=== PATIENT | male | born 1980 | race African-American/Black ===

== ENCOUNTER 2021-07-22 07:26 | Outpatient (REF) | payer OTHER, SELFPAY ==
--- NOTE | ~2021-07-22 | XR_ITS ---
EXAMINATION: XR KNEE STANDING VIEW, BILATERAL XR KNEE, LEFT CLINICAL INFORMATION: Left knee pain. COMPARISON: None TECHNIQUE: Single standing view both knees with 2 additional views left knee. FINDINGS: No bone, joint or soft tissue abnormality is seen. XR/XR knee LT 2V IMPRESSION: Negative knee radiographs.
--- NOTE | ~2021-07-22 | XR_ITS ---
EXAMINATION: XR KNEE STANDING VIEW, BILATERAL XR KNEE, LEFT CLINICAL INFORMATION: Left knee pain. COMPARISON: None TECHNIQUE: Single standing view both knees with 2 additional views left knee. FINDINGS: No bone, joint or soft tissue abnormality is seen. XR/XR knee standing BI IMPRESSION: Negative knee radiographs.
== END 2021-07-22 07:27 | disposition home or self-care (01) ==
LOC: HO.HOSX 07:26
PROVIDERS: Visit Provider Physician Assistant
DX: M76.32 Iliotibial band syndrome, left leg (principal); M25.561 Pain in right knee; M25.562 Pain in left knee
CPT/HCPCS: 73560; 73565

== ENCOUNTER 2021-10-06 15:05 | Outpatient (REF) | payer OTHER, SELFPAY | END 2021-10-06 15:06 | disposition home or self-care (01) | LOC: HO.LAB 15:05 | PROVIDERS: Visit Provider Internal Medicine | DX: Z13.89 Encounter for screening for other disorder (principal) ==

== ENCOUNTER 2023-04-04 15:58 | Emergency (ER) | payer OTHER, SELFPAY ==
--- NOTE | ~2023-04-04 | CT_ITS ---
EXAMINATION: CT HEAD WITHOUT CONTRAST CLINICAL INFORMATION: Headache and hypertension. COMPARISON: None available. TECHNIQUE: Contiguous axial imaging was performed from the skull base to vertex without intravenous administration of contrast. This CT examination was performed using dose optimization techniques as appropriate, variously including the following: *Automated exposure control *Adjustment of mA and/or kV according to patient size (this includes techniques or standardized protocols for targeted exams where dose is matched to indication/reason for exam; i.e. extremities or head) *Use of iterative reconstruction technique DLP: 788 mGy-cm FINDINGS: There is no evidence of acute intracranial hemorrhage or territorial infarction. No mass effect or midline shift is seen. Morales to white matter differentiation is well preserved. No extra-axial fluid collections are identified. No hydrocephalus. The osseous structures and soft tissues are unremarkable. The mastoid air cells and visualized portions of the paranasal sinuses are well aerated. CT/CT head/brain wo IV con IMPRESSION: No acute intracranial pathology.
--- NOTE | 2023-04-04 16:00 | ED.NECK ---
HPI - Neck Pain/Injury General Chief Complaint: Back Pain/Injury Stated Complaint: Neck pain Time Seen by Provider: 04/04/23 17:00 Source: patient, RN notes reviewed and old records reviewed Mode of arrival: ambulatory Limitations: no limitations History of Present Illness HPI Narrative: 42-year-old male past medical history significant for hypertension maintained on lisinopril presents for evaluation of neck pain. Patient reports he woke up with the pain the day after he was ?plumbing under his sink. ? He reports that his head was ?good ocular position for several hours while he was working He denies any trauma to the head or neck He has a pain radiating up over the back was had and some pain rating into his right arm Denies any history of neck pain or neck surgeries No chest pain, shortness of breath He has been taking Aleve with minimal relief of his symptoms No other complaints or concerns at this time Related Data Home Medications Medication Instructions Recorded Confirmed amlodipine 2.5 mg tablet 2.5 mg PO DAILY 07/22/21 lisinopril 2.5 mg tablet 2.5 mg PO DAILY 07/22/21 Previous Rx's Medication Instructions Recorded diazepam 5 mg tablet (Valium) 5 mg PO TID PRN muscle spasm #15 04/04/23 tabs Allergies Allergy/AdvReac Type Severity Reaction Status Date / Time aspirin [ASA] Allergy Severe ANGIOEDEMA Verified 04/04/23 16:04 Review of Systems Constitutional: Constitutional: Reports headache(s) Eyes: Eyes: Denies blurry vision and Reports photophobia ENT: Reports headache(s) and Reports neck pain Cardiovascular: Cardiovascular: Denies chest pain and Denies dyspnea Respiratory: Respiratory: Denies cough and Denies dyspnea Gastrointestinal: Gastrointestinal: Denies abdominal pain Musculoskeletal: Musculoskeletal: Reports muscle cramps, Reports neck pain, Reports numbness and Reports stiffness Neurologic: Reports headache(s) and Reports numbness PMFSH Past Medical History Medical History High blood pressure Social History Social History Smoked in Last 30 Days: Yes Use of substances other than those prescribed or required for medical reasons: Yes Substance Use Type: Marijuana Advance Directives: No Advance Directives Information Provided: No Current occupational status: employed Current occupation: chemistry quality control technician /left hand Physical Exam Vital Signs: Vital Signs: Last Vital Signs Temp 97.2 F 04/04/23 16:01 Pulse 75 04/04/23 16:01 Resp 16 04/04/23 17:09 BP 180/101 H 04/04/23 16:01 Pulse Ox 99 04/04/23 16:01 O2 Del Method Room Air 04/04/23 16:01 BMI result Body Mass Index 32.5 Const: General: healthy appearing, comfortable, no acute distress, alert and awake Nutritional Appearance: well nourished Orientation/consciousness: patient oriented x3 HEENT: Head: Yes normocephalic and Yes atraumatic Eyes: Eyelids: Yes eyelids normal Conjunctivae: conjunctivae normal Sclerae: sclerae normal Corneas: corneas normal Pupils: Equal, round and reactive pupils present EOM: EOMs intact bilaterally Direct Ophthalmoscopy: photophobia Neck: Other: Tenderness in the right cervical paraspinous region. No midline tenderness. Neck: No full ROM and Yes no meningeal signs Resp: Effort & Inspection: normal respiratory effort, able to speak in complete sentences and not labored Cardio: Rate: regular rate Rhythm: regular rhythm Skin: General skin exam: no rashes or lesions noted and elasticity normal Neuro: General: patient oriented x3 and no meningeal signs Cranial nerves: Yes Equal, round and reactive pupils present and Yes Bilaterally intact EOM present Cognition (Neuro): normal cognition Course Course Course Narrative: RME: 42yo M w/PMHx hypertension c/o right sided neck pain, [place] and photophobia x2 days s/p bending over doing plumming at home. Took Aleve with little relief. Headache not maximal in onset Denies injury/trauma or fall, weakness, CP/SOB Hypertensive 180/101 in triage, Right-sided paraspinal cervical tenderness noted Plan: EKG, p.o. Valium, head CT ordered Full HPI, ROS and PE to be performed by primary ED provider. Medications Administered Discontinued Medications Generic Name Dose Route Start Last Admin Trade Name Freq PRN Reason Stop Dose Admin Diazepam 5 mg 04/04/23 16:04 04/04/23 17:04 Diazepam 2 Mg Tablet PO 04/04/23 16:05 5 mg ONCE ONE Administration Medical Decision Making Medical Decision Making [facility] Narrative: 42-year-old male presents for evaluation of right-sided neck pain consistent with cervical strain. He has no midline tenderness, no fever. He had a CT scan ordered by triage provider did not show any acute pathology. He reports his symptoms improved with Valium. Patient blood pressure was slightly elevated to 180/101. I repeated his blood pressure after treatment and his blood pressure improved slightly to 170/100. This is likely related to his level of discomfort. He has no neuro deficits. I do not see any indication to adjust his antihypertensive medication as time, he will follow his PCP regarding his blood pressure. Differential Diagnosis Differential Diagnoses: The differential diagnosis associated with the presentation includes Cervical strain Radiculopathy Acute headache Brain mass Independent Interpretation I performed an independent interpretation of an: EKG (Sinus rhythm the rate of 66 beats per minute. No ischemia, no ectopy) and CT Scan (No intracranial hemorrhage or obvious mass) Radiology Impression Discussion of test interpretation with radiology: I have reviewed the radiologist's reading. (No acute pathology on brain CT) Prescription Management I considered prescription management with: Other (Muscle relaxers/Valium) Chronic Conditions Patient?s care impacted by: Hypertension Discharge Plan Discharge Clinical Impression: Cervical strain, acute, Acute tension headache Patient Disposition: Home, Self-Care Instructions: Cervical Strain (ED) Prescriptions: New diazepam [Valium] 5 mg tablet 5 mg PO TID PRN (Reason: muscle spasm) Qty: 15 0RF
[2023-04-04 16:01] VITALS: BP 180/101; PULSE 75; RESP 18; TEMP 36.2; O2SAT 99; BMI 32.5
--- NOTE | 2023-04-04 16:01 | ECG_ITS ---
Test Reason : back pain Blood Pressure : / mmHG Vent. Rate : 066 BPM Atrial Rate : 066 BPM P-R Int : 148 ms QRS Dur : 090 ms QT Int : 394 ms P-R-T Axes : 055 029 036 degrees QTc Int : 413 ms Normal sinus rhythm Normal ECG No previous ECGs available Referred By: Abigail Patino Electronically Signed By:Ruben Thomas
--- NOTE | 2023-04-04 16:18 | MHC.EDTECH ---
PATIENT EKG TAKEN AND WAS READ BY PROVIDER .
[2023-04-04] MEDS: diazePAM 2 MG TABLET 5 MG PO (17:04)
[2023-04-04 17:09] VITALS: RESP 16
== END 2023-04-04 17:56 | disposition home or self-care (01) ==
PROVIDERS: Emergency Provider Student in an Organized Health Care Education/Training Program; PCP Internal Medicine
DX: S16.1XXA Strain of muscle, fascia and tendon at neck level, initial encounter (principal); M54.2 Cervicalgia; R51.9 Headache, unspecified; X58.XXXA Exposure to other specified factors, initial encounter; Y93.89 Activity, other specified; Y92.009 Unspecified place in unspecified non-institutional (private) residence as the place of occurrence of the external cause; Y99.9 Unspecified external cause status; Z79.899 Other long term (current) drug therapy
CPT/HCPCS: 70450; 93005; 99284